=== PATIENT | female | born 2000 | race Caucasian/White ===

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

== ENCOUNTER 2021-06-30 10:47 | Outpatient (CLI) | payer OTHER ==
[2021-06-30 11:44] VITALS: BP 133/84; PULSE 119; RESP 16; TEMP 97.7
--- NOTE | 2021-07-14 08:09 | P.MSEPDOC ---
Presenting Problems - Arrival Data Date of Arrival on Unit: 06/30/21 Time of Arrival on Unit: 10:47 Mode of Transport: Ambulatory - Complaint OB-Reason for Admission/Chief Complaint: Elevated Blood Pressure Comment: Patient states she was told by her. physician that if her blood pressure was high she. should come to the hospital. Patient states she. checked her blood pressure this am at home and it was. 145/109. Asked patient why her Doctor was having her. check her blood pressures and she denies any. complications, just that "she told me if it was high. I should come to the hospital." Medical History - Information : 1 Para: 0 Term: 0 : 0 Abortions: Spontaneous or Elective: 0 Number of Living Children: 0 - Gestational Age Gestational Age by MAYELA (wks/days): 34 Weeks and 6 Days Review of Systems - Review of Systems Constitutional: No problems Breast: No problems ENT: No problems Cardiovascular: No problems Respiratory: No problems Gastrointestinal: No problems Genitourinary: No problems Musculoskeletal: No problems Neurological: No problems Skin: No problems Vital Signs - Temperature Temperature: 97.7 F Temperature Source: Temporal Artery Scan - Pulse Pulse Oximetery Pulse Rate: 119 Pulse Assessment Method: Pulse Oximetry - Respirations Respiratory Rate: 16 Oxygen Delivery Method: Room Air - Blood Pressure Sitting Blood Pressure: 133/84 Blood Pressure Mean: 100 Medical Screen Scoring - Assessment - Baby A Baseline FHR: 115 Heart Rate - NICHD Category: Category I (Normal) Physician Notification - Physician Notified Physician Notified Date: 06/30/21 Physician Notified Time: 11:06 Physician: Alda Gutierrez New Order Received: Yes - Notification Comment Comment: Physician states to obtain a reactive NST and discharge patient home with instructions Maternal Triage Index - Prompt/Priority 3 Prompt Priority 3: Yes Criteria Met for Priority 3: 34 6/7 Patient arrives to triage with increased blood pressure that she took at home of "145/109" Patient states that she was told by her doctor to come to the hospital if her blood pressure was high, but denies complications this . Disposition - Disposition OB Disposition: Discharge to home, Written follow up instructions reviewed Discharge Date: 06/30/21 Discharge Time: 11:32 I agree with the RN Medical Screening Exam: Yes Physician's MSE Comment: elevated BP not reproduced here in the hospital. Case reviewed; plan agreed upon as documented in EMR&OBIX.: Yes Diagnosis: GESTATIONAL HTN W/O SIGNIFICANT PROTEINURIA, THIRD TRIMESTER
== END 2021-06-30 11:32 | disposition home or self-care (01) ==
LOC: FBPOP 10:47
PROVIDERS: ATTEND Obstetrics & Gynecology
DX: O13.3 Gestational [pregnancy-induced] hypertension without significant proteinuria, third trimester (principal); Z3A.34 34 weeks gestation of pregnancy
CPT/HCPCS: 59025; G0463; 99213

== ENCOUNTER 2023-03-28 05:58 | Inpatient (IN) | payer MEDICAID, OTHER ==
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
[2023-03-28] MEDS ORDERED: ACETAMINOPHEN TAB 500 MG TAB PO STA (09:43)
[2023-03-28 10:26] LABS: Amphetamine Screen,Urine Not Detected (NotDetected); Barbiturate Screen,Urine Not Detected (NotDetected); Benzodiazepines Screen,Urine Not Detected (NotDetected); Cocaine Screen,Urine Not Detected (NotDetected); Methadone Screen, Urine Not Detected (NotDetected); Opiate Screen,Urine Not Detected (NotDetected); Oxycodone Screen, Urine Not Detected (NotDetected); Phencyclidine Screen,Urine Not Detected (NotDetected); Tricyclic Antidepressant,Urine Not Detected (NotDetected); Urn Cannabinoid Scrn Not Detected (NotDetected)
[2023-03-28 13:54] LABS: Appearance,Urine Cloudy (Clear); Bilirubin,Urine Negative (Negative); Blood,Urine Negative (Negative); Budding Yeast,Urine Rare /hpf; Color,Urine Yellow; Glucose,Urine (UA) Negative (Negative); Ketones,Urine Negative (Negative); Leukocyte Esterase,Urine Negative (Negative); Mucus,Urine Occasional /hpf; Nitrite,Urine Negative (Negative); PH, Urine 6.5 (5.0-8.0); Protein,Urine Negative (Negative); RBC,Urine <1 /hpf (0-5); Specific Gravity,Urine 1.029 (1.001-1.035); Squamous Epithelial Cell,Urine 9 /hpf (0-4); Urobilinogen,Urine <2.0 mg/dL (<2.0); WBC,Urine 3 /hpf (0-5)
[2023-03-28] MEDS ORDERED: HALOPERIDOL LACTATE 5 MG/ML 1 ML VIAL IM PRN (16:30)
[2023-03-28] MEDS ORDERED: MAGNESIUM HYDROXIDE 2,400 MG/30 ML CUP PO PRN (16:30)
[2023-03-28] MEDS ORDERED: LORazepam 2 MG/ML INJ IM PRN (16:30)
[2023-03-28] MEDS ORDERED: ACETAMINOPHEN TAB 325 MG TAB PO PRN (16:30)
[2023-03-28] MEDS ORDERED: haloperidoL 5 MG TAB PO PRN (16:30)
[2023-03-28] MEDS: IBUPROFEN 600 MG TAB PO PRN (20:34)
[2023-03-29 10:59] LABS: Basophils # (A) 0.1 k/uL (0-0.2); Basophils % (A) 1 %; Eosinophils # (A) 0.1 k/uL (0-0.7); Eosinophils % (A) 1 %; HCT 42.5 % (34.0-46.0); HGB 14.2 gm/dL (11.4-16.0); Lymphocytes # (A) 2.7 k/uL (1.0-4.8); Lymphocytes % (A) 27 %; MCH 28.9 pg (25.0-35.0); MCHC 33.4 g/dL (31.0-37.0); MCV 86.7 fL (80.0-100.0); Mean Platelet Volume 9.5; Monocytes # (A) 0.6 k/uL (0-1.0); Monocytes % (A) 6 %; Neutrophils # (A) 6.2 k/uL (1.3-7.7); Neutrophils % (A) 63 %; Platelet Count 332 k/uL (150-450); RDW 13.2 % (11.5-15.5); WBC 9.9 k/uL (3.8-10.6)
[2023-03-29 11:20] LABS: ALT 20 U/L (4-34); AST 19 U/L (14-36); African American GFR (CKD) >90 (>60 ml/min/1.73 sqM); Albumin 4.4 g/dL (3.5-5.0); Alkaline Phosphatase 86 U/L (38-126); Anion Gap 13 mmol/L; Blood Urea Nitrogen 13 mg/dL (7-17); Calcium 9.6 mg/dL (8.4-10.2); Carbon Dioxide 24 mmol/L (22-30); Chloride 105 mmol/L (98-107); Glucose 74 mg/dL (74-99); Non-African American GFR(CKD) >90 (>60 ml/min/1.73 sqM); Potassium 4.8 mmol/L (3.5-5.1); Sodium 142 mmol/L (137-145); Total Bilirubin 0.5 mg/dL (0.2-1.3); Total Protein 7.4 g/dL (6.3-8.2)
[2023-03-29] MEDS: SERTRALINE 50 MG TAB PO SCH (12:04)
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
[2023-03-29] MEDS: MAG HYDROX/AL HYDROX/SIMETH 30 ML CUP PO PRN (14:24)
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
[2023-03-29 18:29] LABS: Chol/HDL Ratio 3.18 Ratio; LDL Cholesterol,Calculated 67.7 mg/dL (0.0-131.0)
[2023-03-29] MEDS: NYSTATIN 100,000UNIT/GM CREAM 30 GM TUBE TOPICAL SCH (20:41)
[2023-03-29] MEDS: traZODone HCL 50 MG TAB PO SCH (20:41)
[2023-03-30] MEDS: SERTRALINE 50 MG TAB PO SCH (08:18)
[2023-03-30] MEDS: NYSTATIN 100,000UNIT/GM CREAM 30 GM TUBE TOPICAL SCH ×2 (08:18→20:48)
[2023-03-30] MEDS: IBUPROFEN 600 MG TAB PO PRN (13:39)
--- NOTE | 2023-03-30 14:45 | P.PN ---
Progress Note - Text Progress Note Date: 03/30/23 Interval History: Patient was seen in group and was directable and agreeable to speak with senior grant writer in the office. Patient states that she's doing ok today, and is having no thoughts of hurting herself today. Patient has been taking her meds, and only complaining of a slight stomach ache. Will continue to monitor. She claims that she misses her son. Claims that her mood and anxiety. Improving yesterday. States that she was able sleep fairly last night. Claims that her option is now improving. Claims that she is going to group and trying to participate as best she can. At this time patient denies any suicidal or homical ideations, intent or plan. Patient denies any auditory, visual hallucinations and denies any paranoia or delusions. Patient denies any side effects from the medications and has been compliant with meds. MENTAL STATUS EXAM: General Appearance: Patient appears to be over weight, disheveled, wearing glasses, Has tattoos, obese. Stated age, is alert, directable, and attempts to cooperate. Patient appears to have improving hygiene and grooming. Behavior: Patient is seated without any agitated behavior. Speech: Patient's speech is fluent and nonpressured. Soft Spoken, improving mildly Mood/Affect: Patient reports their mood is depressed and improving mildly, affect is congruent and constricted. Suicidality/Homicidality: Patient denies having any homicidal ideation intent or plan. Denies any suicidal ideations intent or plan Perceptions: Patient denies any visual hallucinations and denies any auditory hallucinations Though content/process: There is no evidence of any delusional thought content and thought process is linear and goal-directed. Improving Memory and concentration: AOX3, grossly intact for the purposes of this session. Judgment and insight: Limited, improving mildly IMPRESSIONS: major depressive disorder without psychotic features intellectual disability PTSD PLAN: -Patient is admitted under voluntary status to MHU for stabilization of psychiatric symptoms and safety. Patient has signed adult voluntary form and medication consent and is placed in patient's chart. -Medications : Zoloft 50mg qd for mood/anxiety, trazodone 25mg qhs for mood/anxiety/sleep -Ativan PRN for agitation/aggression -NRT - nonsmoker -SW on board for discharge planning. Encourage patient to participate in groups to work on coping skills.
[2023-03-30] MEDS: traZODone HCL 50 MG TAB PO SCH (20:48)
[2023-03-31] MEDS: SERTRALINE 50 MG TAB PO SCH (08:06)
[2023-03-31] MEDS: NYSTATIN 100,000UNIT/GM CREAM 30 GM TUBE TOPICAL SCH ×2 (08:06→20:55)
[2023-03-31] MEDS: MAG HYDROX/AL HYDROX/SIMETH 30 ML CUP PO PRN ×2 (08:40→22:05)
[2023-03-31] MEDS: LORazepam 1 MG TAB PO PRN ×2 (14:23→22:06)
[2023-03-31] MEDS: traZODone HCL 50 MG TAB PO SCH (20:55)
[2023-03-31] MEDS ORDERED: diphenhydrAMINE 50 MG CAP PO PRN (22:09)
--- NOTE | 2023-03-31 22:20 | P.PN ---
Progress Note - Text Progress Note Date: 03/31/23 The psychiatrist provided location [place], [place], and credentials, stated I am licensed as an Adult Psychiatrist in the [facility]. Zoom meeting locked after client's arrival. Client Info Confirmation - The client states their name, states they are at [facility] psychiatric unit. HIPAA & limitations - Reviewed and discussed with the client: suicidal/homicidal intent, abuse of children, and plan of action per the law of the patients state of residence. Patient Confidentiality - Informed the client the psychiatrist will not record sessions unless clinically or legally necessary and will disclose first and asked that the client do the same for confidentiality. The client denied recording. Interval History: Patient was seen today as coverage for Dr. Piedra. The patient was evaluated in presence of staff member. The patient reports still having interrupted sleep and feeling tired and not rested. She denies trouble falling sleep but couldn't stay asleep. patient reports Trazodone helps only for falling asleep. The patient has been going to groups and other unit activities. The patient reports is still feeling depressed but slightly improved compared to the time she came to the hospital. She reports she still having suicidal ideation with the last time was last night but she denies any intent or plan to hurt herself. She reports thinking about her family helped her to distract her mind from suicidal thoughts. Patient denies mood swings, irritability, agitation, or outbursts of anger. She reports improvement in her appetite. The patient denies hallucinations, paranoid ideation, delusions, or manic symptoms. She reports having rash related to contact dermatitis which is itching. We discussed two add Benadryl to help with the sleep and itching. Patient agreed to try higher dose of Zoloft to help better managing depression MENTAL STATUS EXAM: General Appearance: Patient appears to be over weight, disheveled, wearing glasses, Has tattoos, obese. Stated age, is alert Behavior: Patient is seated without any agitated behavior. Speech: Patient's speech is fluent and non pressured. Soft Spoken, improving mildly Mood/Affect: Patient reports their mood is depressed and improving mildly, affect is congruent and constricted. Suicidality/Homicidality: Patient denies having any homicidal ideation intent or plan. Reports SI last night but denies intent or plan. Perceptions: Patient denies any visual hallucinations and denies any auditory hallucinations Though content/process: There is no evidence of any delusional thought content and thought process is linear and goal-directed. Improving Memory and concentration: AOX3, grossly intact for the purposes of this session. Judgment and insight: Limited, improving mildly IMPRESSIONS: Major depressive disorder without psychotic features Intellectual disability by history PTSD PLAN: Continue inpatient psychiatric hospitalization.Patient still needs further monitoring and stabilization of depression Implement the following precautions as recommended by the admitting psychiatrist: suicide and elopement Consult the medical team immediately if any medical concerns arise. Educate the patient on the benefits of participating in groups and other unit activities and encourage active participation. Lab work ordered:none Medications: increase Zoloft 75 mg PO qd for mood/anxiety Trazodone 25mg qhs for mood/anxiety/sleep Start Benadryl 25 mg PO HS PRN insomnia/ itching Ativan PRN for agitation/aggression Discharge planning is currently in progress.
[2023-04-01] MEDS: NYSTATIN 100,000UNIT/GM CREAM 30 GM TUBE TOPICAL SCH ×2 (08:43→22:31)
[2023-04-01] MEDS: SERTRALINE 25 MG TAB PO SCH (16:38)
--- NOTE | 2023-04-01 18:55 | P.PN ---
Progress Note - Text Progress Note Date: 04/01/23 Interval History: Patient was seen bedside and was directable and agreeable to speak with automobile and property underwriter. Patient states that she is not sure why Zoloft was moved to bedtime because she's been having more trouble sleeping and says that she did not sleep well last night. However, she was observed to be resting during the daytime and was encouraged to be awake during the day. She also requests an increase in trazodone. The patient states that last night, she was having increased suicidal ideation with a plan to cut herself. However, she states that she was able to redirect herself. She reports fair appetite but lower energy during the daytime today. At this time patient denies any current suicidal or homicidal ideation, intent or plan. Patient denies any auditory, visual hallucinations and denies any paranoia or delusions. Patient denies any side effects from the medications and has been compliant with meds. MENTAL STATUS EXAM: General Appearance: Patient appears to be over weight, disheveled, wearing glasses, Has tattoos, obese. Stated age, is alert, directable, and attempts to cooperate. Patient appears to have improving hygiene and grooming. Behavior: Patient is seated without any agitated behavior. Speech: Patient's speech is fluent and nonpressured. Soft Spoken, improving mildly Mood/Affect: Patient reports their mood is depressed and improving mildly, affect is congruent and constricted. Suicidality/Homicidality: Patient denies having any homicidal ideation intent or plan. Denies any suicidal ideation intent or plan, but admits to recent suicidal ideation. Perceptions: Patient denies any visual hallucinations and denies any auditory hallucinations Though content/process: There is no evidence of any delusional thought content and thought process is linear and goal-directed. [place] Memory and concentration: AOX3, grossly intact for the purposes of this session. Judgment and insight: Limited, improving mildly IMPRESSIONS: major depressive disorder without psychotic features intellectual disability PTSD PLAN: -Patient is admitted under voluntary status to MHU for stabilization of psychiatric symptoms and safety. Patient has signed adult voluntary form and medication consent and is placed in patient's chart. -Medications : Zoloft 50mg qAM for mood/anxiety, increase trazodone to 50mg qhs for mood/anxiety/sleep. Discussed sleep hygiene -Ativan PRN for agitation/aggression -NRT - nonsmoker -SW on board for discharge planning. Encourage patient to participate in groups to work on coping skills.
[2023-04-01] MEDS: IBUPROFEN 600 MG TAB PO PRN (19:43)
[2023-04-01] MEDS ORDERED: SERTRALINE 25 MG TAB PO SCH (21:00)
[2023-04-01] MEDS: traZODone HCL 50 MG TAB PO SCH (22:33)
[2023-04-02] MEDS: NYSTATIN 100,000UNIT/GM CREAM 30 GM TUBE TOPICAL SCH ×2 (08:24→22:35)
[2023-04-02] MEDS: SERTRALINE 25 MG TAB PO SCH (08:24)
--- NOTE | 2023-04-02 17:40 | P.PN ---
Progress Note - Text Progress Note Date: 04/02/23 Interval History: Patient was seen bedside and was directable and agreeable to speak with development writer. Patient says that she had "bad thoughts yesterday" including thoughts of wanting to cut her wrist. However, she says that she thought about her 1-year-old Yahir which made her feel better. She currently reports her mood is "good ". She denies any other concerns. She said that with the increased dose of trazodone, she slept much better last night. She also has noticed that with Zoloft, she is not as interested in overeating. She states that she has a good appetite, she is able to control her eating and regulated better than she used to. At this time patient denies any current suicidal or homicidal ideation, intent or plan. Patient denies any auditory, visual hallucinations and denies any paranoia or delusions. Patient denies any side effects from the medications and has been compliant with meds. MENTAL STATUS EXAM: General Appearance: Patient appears to be over weight, disheveled, wearing glasses, Has tattoos, obese. Stated age, is alert, directable, and attempts to cooperate. Patient appears to have improving hygiene and grooming. Behavior: Patient is seated without any agitated behavior. Speech: Patient's speech is fluent and nonpressured. Soft Spoken, improving mildly Mood/Affect: Patient reports their mood is depressed and improving mildly, affect is congruent and constricted. Suicidality/Homicidality: Patient denies having any homicidal ideation intent or plan. Denies any suicidal ideation intent or plan, but admits to recent suicidal ideation with plan to cut herself Perceptions: Patient denies any visual hallucinations and denies any auditory hallucinations Though content/process: There is no evidence of any delusional thought content and thought process is linear and goal-directed. [place] Memory and concentration: AOX3, grossly intact for the purposes of this session. Judgment and insight: Limited, improving mildly IMPRESSIONS: Major depressive disorder without psychotic features Intellectual disability PTSD PLAN: -Patient is admitted under voluntary status to MHU for stabilization of psychiatric symptoms and safety. Patient has signed adult voluntary form and medication consent and is placed in patient's chart. -Medications : Zoloft 50mg qAM for mood/anxiety, continue trazodone 50mg qhs for mood/anxiety/sleep. -Sleep hygiene -Ativan PRN for agitation/aggression -NRT - nonsmoker -SW on board for discharge planning. Encourage patient to participate in groups to work on coping skills.
[2023-04-02] MEDS: traZODone HCL 50 MG TAB PO SCH (22:35)
[2023-04-03] MEDS: SERTRALINE 25 MG TAB PO SCH (08:39)
[2023-04-03] MEDS: NYSTATIN 100,000UNIT/GM CREAM 30 GM TUBE TOPICAL SCH ×2 (08:39→22:23)
[2023-04-03] MEDS: IBUPROFEN 600 MG TAB PO PRN (10:06)
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
[2023-04-03] MEDS: buPROPion 100 MG TAB PO SCH (22:44)
[2023-04-03] MEDS: traZODone HCL 50 MG TAB PO SCH (22:44)
[2023-04-04] MEDS: NYSTATIN 100,000UNIT/GM CREAM 30 GM TUBE TOPICAL SCH ×2 (08:54→22:30)
[2023-04-04] MEDS: SERTRALINE 100 MG TAB PO SCH (08:54)
[2023-04-04] MEDS: SERTRALINE 25 MG TAB PO SCH (08:54)
[2023-04-04] MEDS: buPROPion 100 MG TAB PO SCH ×2 (08:55→22:30)
--- NOTE | 2023-04-04 13:33 | P.PN ---
Subjective Progress Note Date: 04/04/23 Patient Name: Hafsa Pinzon Date of : [birth year] Patient Status: Inpatient Attending Provider: James Piedra Date: Initialization Date: 04/02/23 17:38 Progress Note - Text Progress Note Date: 04/03/23 Interval History: The patient was seen chart was reviewed in case discussed with the nursing staff the patient was evaluated through the Tele psych by zoom conference Patient reports that she wants to go home she says that her mother wants her to be back patient however did not give any details about her complaints of depression and complains of not feeling better as well as meeting all the medications changed patient was increasingly demanding yesterday and concrete and focused on presenting yourself in a worse picture? Remains a unreliable historian MENTAL STATUS EXAM: General Appearance: Patient appears to be over weight, disheveled, wearing glasses, Has tattoos, obese. Stated age, is alert, directable, and attempts to cooperate. Patient appears to have improving hygiene and grooming. Behavior: Patient is seated without any agitated behavior. Speech: Patient's speech is fluent and nonpressured. Soft Spoken, improving mildly Mood/Affect: Patient reports their mood is depressed , affect is congruent and constricted. Suicidality/Homicidality: admits suicidal ideation but no intent or plan, but admits to recent suicidal ideation with plan to cut herself Perceptions: Patient denies any visual hallucinations and denies any auditory hallucinations Though content/process: There is no evidence of any delusional thought content and thought process is linear and goal-directed. [place] Memory and concentration: AOX3, grossly intact for the purposes of this session. 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 Major depressive disorder without psychotic features Intellectual disability PTSD PLAN: patient originally was expecting to be discharged but now demands more changes with her medications as well as a completely opposite picture of what she had claimed the previous day patient appears to show some dependency traits as well as tendency to exaggerate some of her complaints dispel her false expectations regarding getting'happy medications'and realistic expectations discussed medications as a co-treatment in addition to improve her coping skills and positive thinking and working on her affirmations goals and cognitive distortions and learning appropriate life management coping skills -Patient is admitted under voluntary status to [facility] for stabilization of psychiatric symptoms and safety. Patient has signed adult voluntary form and medication consent and is placed in patient's chart. -Medications : continue trazodone 50mg qhs for mood/anxiety/sleep. Will increase the Zoloft to 125 mg daily and also had Wellbutrin hundred milligrams b.i.d. as requested by the patient for med changes as deemed appropriate discussed effects and side effects -Sleep hygiene -Ativan PRN for agitation/aggression -NRT - nonsmoker -SW on board for discharge planning. Encourage patient to participate in groups to work on coping skills. But it is setting limits and redirection and reality orientation Junior Wilson MD 04/04/2023 Objective - Vital Signs Vital signs: Vital Signs Temp 97.5 F L 04/04/23 06:26 Pulse 104 H 04/04/23 06:26 Resp 14 04/04/23 06:26 BP 123/74 04/04/23 06:26 Pulse Ox 97 04/03/23 06:43 FiO2 - Labs CBC & Chem 7: 03/29/23 10:22 03/29/23 10:22
[2023-04-04] MEDS: LORazepam 1 MG TAB PO PRN (15:25)
[2023-04-04] MEDS: IBUPROFEN 600 MG TAB PO PRN (15:47)
[2023-04-04] MEDS: traZODone HCL 50 MG TAB PO SCH (22:30)
[2023-04-05] MEDS: NYSTATIN 100,000UNIT/GM CREAM 30 GM TUBE TOPICAL SCH ×2 (08:31→22:41)
[2023-04-05] MEDS: SERTRALINE 100 MG TAB PO SCH (08:31)
[2023-04-05] MEDS: SERTRALINE 25 MG TAB PO SCH (08:31)
[2023-04-05] MEDS: buPROPion 100 MG TAB PO SCH ×2 (08:31→22:40)
--- NOTE | 2023-04-05 14:48 | P.PN ---
Subjective Progress Note Date: 04/05/23 Patient Name: Hafsa Pinzon Date of : 00 Patient Status: Inpatient Attending Provider: James Piedra Date: 04/04/23 Initialization Date: 04/02/23 17:38 Interval History: The patient was seen chart was reviewed in case discussed with the nursing staff Patient reports that she feels anxious throughout the day although she does not show any signs of anxiety objectively new line continues to demand more medications patient remains very medication oriented thinking remains very concrete and simple new line stays that she did have some sleep but it was impaired MENTAL STATUS EXAM: General Appearance: Patient appears to be over weight, disheveled, wearing glasses, Has tattoos, obese. Stated age, is alert, directable, and attempts to cooperate. Patient appears to have improving hygiene and grooming. Behavior: Patient is seated without any agitated behavior. Speech: Patient's speech is fluent and nonpressured. Soft Spoken, improving mildly Mood/Affect: Patient reports their mood is depressed , affect is congruent and constricted. Suicidality/Homicidality: admits suicidal ideation but no intent or plan, but admits to recent suicidal ideation with plan to cut herself Perceptions: Patient denies any visual hallucinations and denies any auditory hallucinations Though content/process: There is no evidence of any delusional thought content and thought process is linear and goal-directed. [place] Memory and concentration: AOX3, grossly intact for the purposes of this session. 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 Major depressive disorder without psychotic features Intellectual disability PTSD PLAN: patient originally was expecting to be discharged but now demands more changes with her medications as well as a completely opposite picture of what she had claimed the previous day patient appears to show some dependency traits as well as tendency to exaggerate some of her complaints dispel her false expectations regarding getting'happy medications'and realistic expectations discussed medications as a co-treatment in addition to improve her coping skills and positive thinking and working on her affirmations goals and cognitive d istortions and learning appropriate life management coping skills -Patient is admitted under voluntary status to [facility] for stabilization of psychiatric symptoms and safety. Patient has signed adult voluntary form and medication consent and is placed in patient's chart. -Medications : continue trazodone 50mg qhs for mood/anxiety/sleep. Have increased the Zoloft to 125 mg daily and also Added Wellbutrin hundred milligrams b.i.d. as requested by the patient for med changes as deemed appropriate discussed effects and side effects Due to her drug seeking behavior will discontinue the Lorazepam as patient has a high potential for abuse and will start gabapentin 200 programs TID to start with discussed effects and side effects [facility] care and support -Sleep hygiene -Ativan PRN for agitation/aggression -NRT - nonsmoker -SW on board for discharge planning. Encourage patient to participate in groups to work on coping skills. But it is setting limits and redirection and reality orientation Junior Wilson MD 04/05/2023 The following note is dictated with the [employer] dictation system and may contain some mistakes and grammatical errors every attempt has been made to correct the note but may still escape some scrutiny Objective - Vital Signs Vital signs: Vital Signs Temp 98.4 F 04/05/23 06:59 Pulse 105 H 04/05/23 06:59 Resp 14 04/05/23 06:59 BP 117/56 04/05/23 06:59 Pulse Ox 98 04/05/23 06:59 FiO2 - Labs CBC & Chem 7: 03/29/23 10:22 03/29/23 10:22
[2023-04-05] MEDS: GABAPENTIN 100 MG CAP PO SCH ×2 (16:16→22:40)
[2023-04-05] MEDS: IBUPROFEN 600 MG TAB PO PRN (20:34)
[2023-04-05] MEDS: traZODone HCL 50 MG TAB PO SCH (22:40)
[2023-04-06] MEDS: buPROPion 100 MG TAB PO SCH ×2 (08:46→21:50)
[2023-04-06] MEDS: SERTRALINE 100 MG TAB PO SCH (08:46)
[2023-04-06] MEDS: GABAPENTIN 100 MG CAP PO SCH ×3 (08:46→21:50)
[2023-04-06] MEDS: SERTRALINE 25 MG TAB PO SCH (08:46)
[2023-04-06] MEDS: NYSTATIN 100,000UNIT/GM CREAM 30 GM TUBE TOPICAL SCH ×2 (08:46→21:50)
[2023-04-06] MEDS: valACYclovir HCL 1,000 MG TABLET PO SCH ×2 (13:00→21:52)
--- NOTE | 2023-04-06 14:50 | P.PN ---
Subjective Progress Note Date: 04/06/23 Patient Name: Hafsa Pinzon Date of : 00 Patient Status: Inpatient Attending Provider: James Piedra Date: 04/06/23 Initialization Date: 04/02/23 17:38 Interval History: The patient was seen chart was reviewed in case discussed in the nursing staff patient now reports that she is feeling somewhat better and that she is looking forward to going home soon patient states that she still has some cold sores in the mouth and requested for some intervention she denies that she is having any suicidal or homicidal thoughts patient states that she has been sleeping somewhat better MENTAL STATUS EXAM: Reveals a young female who appears somewhat overweight patient is alert and oriented to time place and person hygiene appears to be below par patient makes good eye contact affect at this time remains flat thinking remains very concrete patient continues to rationalize and intellectualize problem-solving skills are impaired self-esteem and confidence are low patient appears to be a jones average intelligence there is no evidence of any overt psychosis IMPRESSIONS: adjustment disorder with mixed emotional features personality disorder with borderline traits Major depressive disorder without psychotic features Intellectual disability PTSD PLAN: Patient's complaints seem to fluctuate between severe anxiety and depression to complete resolution the next day and reemerges of the same symptoms that they later patient overall remains unreliable historian thinking remains very concrete and simple Patient has also been requesting medications that will make her happy dispel her false expectations regarding getting'happy medications'and realistic expectations discussed medications as a co-treatment in addition to improve her coping skills and positive thinking and working on her affirmations goals and cognitive distortions and learning appropriate life management coping skills -Patient is admitted under voluntary status to [facility] for stabilization of psychiatric symptoms and safety. Patient has signed adult voluntary form and medication consent and is placed in patient's chart. -Medications : continue trazodone 50mg qhs for mood/anxiety/sleep. Have increased the Zoloft to 125 mg daily and also Added Wellbutrin hundred milligrams b.i.d. as requested by the patient for med changes as deemed appropriate discussed effects and side effects Due to her drug seeking behavior will discontinue the Lorazepam as patient has a high potential for abuse and will start gabapentin 200 programs TID to start with discussed effects and side effects [facility] care and support -Sleep hygiene -Ativan PRN for agitation/aggression -NRT - nonsmoker -SW on board for discharge planning. Encourage patient to participate in groups to work on coping skills. Junior Wilson MD 04/06/2023 The following note is dictated with the [employer] dictation system and may contain some mistakes and grammatical errors every attempt has been made to correct the note but may still escape some scrutiny Objective - Vital Signs Vital signs: Vital Signs Temp 98.4 F 04/05/23 06:59 Pulse 107 H 04/06/23 08:47 Resp 20 04/06/23 08:47 BP 123/66 04/06/23 08:47 Pulse Ox 98 04/05/23 06:59 FiO2 - Labs CBC & Chem 7: 03/29/23 10:22 03/29/23 10:22
--- NOTE | 2023-04-06 14:52 | P.PN ---
Subjective Progress Note Date: 04/06/23 Patient Name: Hafsa Pinzon Date of : 00 Patient Status: Inpatient Attending Provider: James Piedra Date: 04/06/23 Initialization Date: 04/02/23 17:38 Interval History: The patient was seen chart was reviewed in case discussed in the nursing staff patient now reports that she is feeling somewhat better and that she is looking forward to going home soon patient states that she still has some cold sores in the mouth and requested for some intervention she denies that she is having any suicidal or homicidal thoughts patient states that she has been sleeping somewhat better MENTAL STATUS EXAM: Reveals a young female who appears somewhat overweight patient is alert and oriented to time place and person hygiene appears to be below par patient makes good eye contact affect at this time remains flat thinking remains very concrete patient continues to rationalize and intellectualize problem-solving skills are impaired self-esteem and confidence are low patient appears to be a jones average intelligence there is no evidence of any overt psychosis IMPRESSIONS: adjustment disorder with mixed emotional features personality disorder with borderline traits Major depressive disorder without psychotic features Intellectual disability PTSD PLAN: Patient's complaints seem to fluctuate between severe anxiety and depression to complete resolution the next day and reemerges of the same symptoms that they later patient overall remains unreliable historian thinking remains very concrete and simple Patient has also been requesting medications that will make her happy dispel her false expectations regarding getting'happy medications'and realistic expectations discussed medications as a co-treatment in addition to improve her coping skills and positive thinking and working on her affirmations goals and cognitive distortions and learning appropriate life management coping skills -Patient is admitted under voluntary status to [facility] for stabilization of psychiatric symptoms and safety. Patient has signed adult voluntary form and medication consent and is placed in patient's chart. -Medications : continue trazodone 50mg qhs for mood/anxiety/sleep. Have increased the Zoloft to 125 mg daily and also Added Wellbutrin hundred milligrams b.i.d. as requested by the patient for med changes as deemed appropriate discussed effects and side effects Due to her drug seeking behavior will discontinue the Lorazepam as patient has a high potential for abuse and will start gabapentin 200 programs TID to start with discussed effects and side effects [facility] care and support -Sleep hygiene -Ativan PRN for agitation/aggression -NRT - nonsmoker -SW on board for discharge planning. Encourage patient to participate in groups to work on coping skills. Junior Wilson MD 04/06/2023 The following note is dictated with the [employer] dictation system and may contain some mistakes and grammatical errors every attempt has been made to correct the note but may still escape some scrutiny Objective - Vital Signs Vital signs: Vital Signs Temp 98.4 F 04/05/23 06:59 Pulse 107 H 04/06/23 08:47 Resp 20 04/06/23 08:47 BP 123/66 04/06/23 08:47 Pulse Ox 98 04/05/23 06:59 FiO2 - Labs CBC & Chem 7: 03/29/23 10:22 03/29/23 10:22
[2023-04-06] MEDS: traZODone HCL 50 MG TAB PO SCH (21:50)
[2023-04-06] MEDS: IBUPROFEN 600 MG TAB PO PRN (21:51)
[2023-04-07 05:59] VITALS: BP 138/66; PULSE 91; RESP 18; TEMP 98
[2023-04-07] MEDS: NYSTATIN 100,000UNIT/GM CREAM 30 GM TUBE TOPICAL SCH (08:24)
[2023-04-07] MEDS: SERTRALINE 25 MG TAB PO SCH (08:24)
[2023-04-07] MEDS: buPROPion 100 MG TAB PO SCH (08:24)
[2023-04-07] MEDS: SERTRALINE 100 MG TAB PO SCH (08:25)
[2023-04-07] MEDS: GABAPENTIN 100 MG CAP PO SCH (08:25)
[2023-04-07 11:20] VITALS: BMI 54.5
--- NOTE | 2023-04-07 11:25 | P.DS ---
Providers Date of admission: 03/28/23 16:23 Expected date of discharge: 04/07/23 Attending physician: James Peidra MD Consults: 03/28/23 16:30 Consult Physician Routine Consulting Provider: Tessa Villalobos Consult Reason/Comments: H&P and rash on buttocks and between 4th and 5th digit on right foot Do you want consulting provider notified?: Yes Primary care physician: Nolvia Peters - Discharge Diagnosis(es) (1) Adjustment disorder with mixed emotional features Current Visit: Yes Status: Acute Priority: High (2) Personality disorder Current Visit: Yes Status: Acute Priority: High (3) Major depressive disorder without psychotic features Current Visit: Yes Status: Acute Priority: High (4) Intellectual disability Current Visit: Yes Status: Acute Priority: Medium (5) PTSD (post-traumatic stress disorder) Current Visit: Yes Status: Acute Priority: Medium Hospital Course: Admission HPI: Admission note was completed by mortgage loan underwriter "Patient is a 22-year-old female, lives in a house with mother, brother, stepparent, tonia, 1-year-old son. Unemployed. Patient presented to the hospital on 03/28 to the ED, as per EPS note "family had called to pt early this morning after pt's son woke up and wanted pt. However, pt then began to yell and scream and escalated to the point where police had to be called to the home. pt states, "I don't know why I blew up. I need help. I have been depressed for a year now." pt reports that she has also been feeling isolated and alone since she gave to her son who will be 2 in July. pt states that her family goes out working and she is home alone for a significant period of time with her son. pt reports that she loves her son, but has been missing having interactions with others who are older. pt reports that she has been having intermittent SI that has been occurring more frequently recently. pt states that she last had SI on Monday or Monday. pt denies current SI initially. pt denies HI and hallucinations. No delusional thoughts verbalized. pt cooperative with assessment. pt's mother stepped out of room and pt requested to speak with mortgage loan underwriter again. pt reports significant SI with plan to cut and reports that it has been happening daily. pt reports that she is currently experiencing SI as well. pt states that the reason she had not acted on her thoughts was because she was home alone with her son and did not want him to be home without someone to care for him. pt states that she had not initially spoken about these thoughts because she did not want her mom to be angry with her or cry and did not initially know how to request that her mother leave when mortgage loan underwriter had originally asked. pt did request mortgage loan underwriter to remain in room while she told her mother that she had been experiencing SI more frequently than she had told her and that she was currently experiencing SI. pt states that she did not want to disappoint her mother." Upon todays interview, she states what brought her in is all the pressure of raising and caring for her son, and her fiance, with having to care for him with diabetes. States she's been depressed for about a year, and is just feeling very overwhelmed. States she got into a fight with her mother, about caring for her baby, and she got triggered from being woke up rudely by her brother. States she did not hurt herself, but she had thoughts of hurting herself. States she wanted to cut her wrists. Mother called 911, and they brought her to the hospital. Mood today is a little better, but not much, and she is feeling anxious. Patient states her sleep is as good as it gets with a 1 year old. Her appetite is fair. Patient does not endorse any paranoia. Patient denies any suicidal or homicidal ideations intent or plan. At this time patient denies any auditory or visual hallucinations. Patient denies any flight of ideas racing thoughts and increased in goal directed behavior. Patient denies using recreational drugs, alcohol, cigarettes. " Hospital course: Upon admission to the unit patient was directable and agreeable to commence treatment and signed adult voluntary form. Patient got along well with other patients on the unit and followed unit protocol. Patient was compliant with the medications and denied any side effects throughout hospital course. Patient was started on Zoloft and increase her dose of 150 mg daily for mood/anxiety, Wellbutrin 100 mg twice a day for mood adjunct, trazodone 50 mg qhs for insomnia/mood. Patient spoke of her stressors and engaged in therapy both group and individual. Patient was also seen by medical team for history and physical exam. Throughout the course of the hospitalization patient gradually improved with regards to mood, anxiety, suicidal thoughts, sleep and returned back to their baseline level of functioning. On the day of discharge patient denied any suicidal or homicidal ideations intent or plan denied any auditory or visual hallucinations. Patient endorsed wanting to live for her health and family/kids. The patient denied any access to guns or weapons. Patient denied any paranoia and did not endorse any delusions. Patient does not have a significant history of substance abuse and was counseled on abstaining from all substances including alcohol and marijuana. Patient was also counseled on the medications and need for regular compliance and was encouraged to follow-up with their outpatient appointment for mental health and also for primary care. Prior to discharge a family meeting will be arranged by high school social studies tutor to answer any questions and ensure safety upon discharge. Mental status exam: General Appearance: Patient appears to be mildly overweight, wearing gl asses,stated age is alert, pleasant, and cooperative. Patient is in no acute distress and has improved hygiene and grooming Behavior: Patient is calmly seated without any agitated behavior. Speech: Patient's speech is fluent and nonpressured. Mood/Affect: Patient reports their mood is "better", affect is congruent and euthymic. Suicidality/Homicidality: Patient denies having any suicidal or homicidal ideation intent or plan. Perceptions: Patient denies any auditory or visual hallucinations. Though content/process: There is no evidence of any delusional thought content and thought process is linear and goal-directed. more future oriented Memory and concentration: AOX3, grossly intact for the purposes of this session. Can spell "WORLD" backwards correctly. Judgment and insight: chronically poor/limited, however has improved with guarded prognosis Impression: adjustment disorder with mixed emotional features personality disorder major depressive disorder without psychotic features intellectual disability PTSD Plan: -Continue with discharge today as patient has improved and stabilized psychiatrically and is not currently an imminent threat to herself and/or others. Patient will remain at chronically elevated risk for harm to self and/or others due to her impulsivity. -Continue medications: Zoloft 150 mg daily for mood/anxiety, trazodone 50 mg daily at bedtime for mood/sleep, Wellbutrin 100 mg twice a day for mood adjunct -Patient was counseled on the need for medication compliance and appropriate follow-up at mental health and also primary care for medical issues. Patient verbalized understanding and agreed. -Social work to arrange for and conduct family meeting to ensure safety upon discharge and answer any questions/concerns. Social work also to arrange for pat ients follow up appointments with [facility] for psychiatric care along with follow up with primary care provider. -Patient counseled on abstaining from recreational drugs and marijuana and alcohol. Was informed/educated on the adverse effects on their physical and mental health. Patient verbally agreed and understood. -Patient was instructed to return to the hospital or seek immediate medical care if their psychiatric or medical symptoms do worsen or reoccur. Allergies Allergy/AdvReac Type Severity Reaction Status Date / Time No Known Allergies Allergy Verified 03/28/23 15:17 Laboratory Results WBC 9.9 k/uL (3.8-10.6) 03/29/23 10: RBC 4.90 m/uL (3.80-5.40) 03/29/23 10:22 Hgb 14.2 gm/dL (11.4-16.0) 03/29/23 10:22 Hct 42.5 % (34.0-46.0) 03/29/23 10:22 MCV 86.7 fL (80.0-100.0) 03/29/23 10: MCH 28.9 pg (25.0-35.0) 03/29/23 10: MCHC 33.4 g/dL (31.0-37.0) 03/29/23 10:22 RDW 13.2 % (11.5-15.5) 03/29/23 10:22 Plt Count 332 k/uL (150-450) 03/29/23 10:22 MPV 9.5 03/29/23 10:22 Neutrophils % 63 % 03/29/23 10:22 Lymphocytes % 27 % 03/29/23 10:22 Monocytes % 6 % 03/29/23 10:22 Eosinophils % 1 % 03/29/23 10:22 Basophils % 1 % 03/29/23 10: Neutrophils # 6.2 k/uL (1.3-7.7) 03/29/23 10:22 Lymphocytes # 2.7 k/uL (1.0-4.8) 03/29/23 10: Monocytes # 0.6 k/uL (0-1.0) 03/29/23 10:22 Eosinophils # 0.1 k/uL (0-0.7) 03/29/23 10:22 Basophils # 0.1 k/uL (0-0.2) 03/29/23 10:22 Sodium 142 mmol/L (137-145) 03/29/23 10:22 Potassium 4.8 mmol/L (3.5-5.1) 03/29/23 10:22 Chloride 105 mmol/L (98-107) 03/29/23 10:22 Carbon Dioxide 24 mmol/L (22-30) 03/29/23 10:22 Anion Gap 13 mmol/L 03/29/23 10:22 BUN 13 mg/dL (7-17) 03/29/23 10:22 Creatinine 0.60 mg/dL (0.52-1.04) 03/29/23 10:22 Est GFR (CKD-EPI)AfAm >90 (>60 ml/min/1.73 sqM) 03/29/23 10:22 Est GFR (CKD-EPI)NonAf >90 (>60 ml/min/1.73 sqM) 03/29/23 10:22 Glucose 74 mg/dL (74-99) 03/29/23 10:[address] Glu mg/dL 114 mg/dL 03/29/23 10:22 Hemoglobin A1c 5.6 % (<=6.0) 03/29/23 10:22 Calcium 9.6 mg/dL (8.4-10.2) 03/29/23 10:22 Total Bilirubin 0.5 mg/dL (0.2-1.3) 03/29/23 10:22 AST 19 U/L (14-36) 03/29/23 10:22 ALT 20 U/L (4-34) 03/29/23 10:22 Alkaline Phosphatase 86 U/L (38-126) 03/29/23 10:22 Total Protein 7.4 g/dL (6.3-8.2) 03/29/23 10:22 Albumin 4.4 g/dL (3.5-5.0) 03/29/23 10:22 Triglycerides 121.00 mg/dL (0.00-149.00) 03/29/23 10:22 Cholesterol 134.00 mg/dL (0.00-200.00) 03/29/23 10:22 LDL Cholesterol, Calc 67.7 mg/dL (0.0-131.0) 03/29/23 10:22 VLDL Cholesterol, Calc 24.20 mg/dL (5.00-40.00) 03/29/23 10: HDL Cholesterol 42.10 mg/dL (40.00-60.00) 03/29/23 10: Cholesterol/HDL Ratio 3.18 Ratio 03/29/23: TSH 0.883 mIU/L (0.465-4.680) 03/29/23 10:22 Urine Color Yellow 03/28/23 09:53 Urine Appearance Cloudy (Clear) H 03/28/23 09:53 Urine pH 6.5 (5.0-8.0) 03/28/23 09:53 Ur Specific [place] 1.029 (1.001-1.035) 03/28/23 09:53 Urine Protein Negative (Negative) 03/28/23 09:53 Urine Glucose (UA) Negative (Negative) 03/28/23 09:53 Urine Ketones Negative (Negative) 03/28/23 09:53 Urine Blood Negative (Negative) 03/28/23 09:53 Urine Nitrite Negative (Negative) 03/28/23 09:53 Urine Bilirubin Negative (Negative) 03/28/23 09:53 Urine Urobilinogen <2.0 mg/dL (<2.0) 03/28/23 09:53 Ur Leukocyte Esterase Negative (Negative) 03/28/23 09:53 Urine RBC <1 /hpf (0-5) 03/28/23 09:53 Urine WBC 3 /hpf (0-5) 03/28/23 09:53 Ur Squamous Epith Cells 9 /hpf (0-4) H 03/28/23 09:53 Urine Mucus Occasional /hpf (None) H 03/28/23 09:53 Urine Yeast (Budding) Rare /hpf (None) H 03/28/23 09:53 Urine HCG, Qual Not Detected (Not Detectd) 03/28/23 09:53 Urine Opiates Screen Not Detected (NotDetected) 03/28/23 09:53 Ur Oxycodone Screen Not Detected (NotDetected) 03/28/23 09:53 Urine Methadone Screen Not Detected (NotDetected) 03/28/23 09:53 Ur Barbiturates Screen Not Detected (NotDetected) 03/28/23 09:53 U Tricyclic Antidepress Not Detected (NotDetected) 03/28/23 09:53 Ur Phencyclidine Scrn Not Detected (NotDetected) 03/28/23 09:53 Ur Amphetamines Screen Not Detected (NotDetected) 03/28/23 09:53 U Methamphetamines Scrn Not Detected (NotDetected) 03/28/23 09:53 U Benzodiazepines Scrn Not Detected (NotDetected) 03/28/23 09:53 Urine Cocaine Screen Not Detected (NotDetected) 03/28/23 09:53 U Marijuana (THC) Screen Not Detected (NotDetected) 03/28/23 09:53 SARS-CoV-2 (PCR) Not Detected (Not Detectd) 03/28/23 09:53 Vital Signs Temp 98 F 04/07/23 05:35 Pulse 91 04/07/23 05:35 Resp 18 04/07/23 05:35 BP 138/66 04/07/23 05:35 Pulse Ox 99 04/07/23 05:35 FiO2 Intake & Output 04/06/23 04/07/23 04/07/23 18:59 06:59 18:59 Weight 126.6 kg Patient Condition at Discharge: Stable Plan - Discharge Summary Discharge Rx Participant: No New Discharge Prescriptions: New traZODone HCL [Desyrel] 50 mg PO HS 14 Days #14 tab Nystatin 100,000Unit/gm Cream [Mycostatin Cream] 1 applic TOPICAL BID 30 Days #1 each Acetaminophen Tab [Tylenol] 650 mg PO Q4HR PRN tab PRN Reason: Mild Pain (Scale 1 To 3) buPROPion [Wellbutrin] 100 mg PO BID 14 Days #28 tab Sertraline [Zoloft] 100 mg PO DAILY 14 Days #14 tab Ibuprofen [Motrin] 600 mg PO Q6HR PRN tab PRN Reason: Moderate Pain (Scale 4 To 6) valACYclovir HCL [Valtrex] 1,000 mg PO BID 5 Days #10 tablet Sertraline HCl [Zoloft] 50 mg PO DAILY 14 Days #14 tablet No Action No Known Home Medications Discharge Medication List No Known Home Medications 03/28/23 [History] Acetaminophen Tab [Tylenol] 650 mg PO Q4HR PRN tab 04/07/23 [Rx] Ibuprofen [Motrin] 600 mg PO Q6HR PRN tab 04/07/23 [Rx] Nystatin 100,000Unit/gm Cream [Mycostatin Cream] 1 applic TOPICAL BID 30 Days #1 each 04/07/23 [Rx] Sertraline HCl [Zoloft] 50 mg PO DAILY 14 Days #14 tablet 04/07/23 [Rx] Sertraline [Zoloft] 100 mg PO DAILY 14 Days #14 tab 04/07/23 [Rx] buPROPion [Wellbutrin] 100 mg PO BID 14 Days #28 tab 04/07/23 [Rx] traZODone HCL [Desyrel] 50 mg PO HS 14 Days #14 tab 04/07/23 [Rx] valACYclovir HCL [Valtrex] 1,000 mg PO BID 5 Days #10 tablet 04/07/23 [Rx] Follow up Appointment(s)/Referral(s): [facility] [Outside] - 04/11/23 2:00 pm (You will go to [facility] after you initial intake. with Nela Gavin) Nolvia Peters MD [Primary Care Provider] - 1-2 days Activity/Diet/Wound Care/Special Instructions: Avoid the use of street drugs and alcohol. Take all medications as prescribed. When you are in need of refills on your medications, please contact your medical provider and/or outpatient psychiatrist/provider to have this done. Please go to your scheduled outpatient appointment for aftercare treatment. If symptoms return or become worse, call the crisis line at and/or go to the nearest emergency room for evaluation. National Suicide Hotline 778. Discharge Disposition: HOME SELF-CARE
== END 2023-04-07 12:57 | disposition home or self-care (01) | DRG 755 ==
LOC: EC 05:58 → 3MHU 16:23
PROVIDERS: ADMIT Psychiatry & Neurology Psychiatry; ATTEND Psychiatry & Neurology Psychiatry
DX: F43.23 Adjustment disorder with mixed anxiety and depressed mood (principal); Z68.43 Body mass index [BMI] 50.0-59.9, adult; R45.851 Suicidal ideations; F31.9 Bipolar disorder, unspecified; R45.88 Nonsuicidal self-harm; F60.3 Borderline personality disorder; Z11.52 Encounter for screening for COVID-19; E66.9 Obesity, unspecified; F90.9 Attention-deficit hyperactivity disorder, unspecified type; F79 Unspecified intellectual disabilities; B00.1 Herpesviral vesicular dermatitis; I10 Essential (primary) hypertension; F43.10 Post-traumatic stress disorder, unspecified; F84.0 Autistic disorder; G47.00 Insomnia, unspecified; L25.9 Unspecified contact dermatitis, unspecified cause; Z56.0 Unemployment, unspecified; Z59.6 Low income; Z71.3 Dietary counseling and surveillance; Z76.5 Malingerer [conscious simulation]; Z81.8 Family history of other mental and behavioral disorders; Z71.51 Drug abuse counseling and surveillance of drug abuser; Z71.41 Alcohol abuse counseling and surveillance of alcoholic
CPT/HCPCS: 80053; 80061; 80306; 81001; 81025; 82075; 83036; 84443; 85025; 87635; 99285

== ENCOUNTER 2023-11-09 00:40 | Inpatient (IN) | payer MEDICAID, OTHER ==
[2023-11-09] MEDS ORDERED: ACETAMINOPHEN TAB 325 MG TAB ONE (18:28)
[2023-11-09] MEDS ORDERED: LORazepam 1 MG TAB ONE (18:32)
[2023-11-10] MEDS ORDERED: SERTRALINE 50 MG TAB ONE (08:23)
[2023-11-10] MEDS ORDERED: ARIPiprazole 5 MG TAB ONE (08:24)
[2023-11-10] MEDS ORDERED: traZODone HCL 50 MG TAB ONE (20:27)
[2023-11-11] MEDS ORDERED: ARIPiprazole 5 MG TAB ONE (08:01)
[2023-11-11] MEDS ORDERED: SERTRALINE 50 MG TAB ONE (08:01)
[2023-11-11] MEDS ORDERED: ACETAMINOPHEN TAB 325 MG TAB ONE ×2 (08:59→17:36)
[2023-11-11] MEDS ORDERED: LORazepam 1 MG TAB ONE (20:32)
[2023-11-12] MEDS ORDERED: MAG HYDROX/AL HYDROX/SIMETH 30 ML CUP PO PRN
[2023-11-12] MEDS ORDERED: BENZOCAINE 20 % GEL 11.9 GM TUBE MM PRN
[2023-11-12] MEDS ORDERED: LORazepam 2 MG/ML INJ IM PRN
[2023-11-12] MEDS ORDERED: SERTRALINE 50 MG TAB ONE (08:43)
[2023-11-12] MEDS ORDERED: ARIPiprazole 5 MG TAB ONE (08:43)
[2023-11-12] MEDS: SERTRALINE 50 MG TAB PO SCH (09:11)
[2023-11-12] MEDS: ARIPiprazole 5 MG TAB PO SCH (09:11)
--- NOTE | 2023-11-12 11:02 | P.PN ---
Progress Note - Text Progress Note Date: 11/12/23 The patient was seen and chart was reviewed and case discussed with nursing staff Patient reports that she seemed to get somewhat anxious in the evening and that whatever they gave her last night was helpful with her anxiety most likely referring to the lorazepam Emotionally she states that she is doing better She says that she is not having any suicidal or homicidal ideations or plans She states that she plans to get along better with her mother and that she intends to use her coping skills to communicate better Patient denies any thoughts of wanting to hurt himself or others Mental Status Exam: General Appearance: Patient appears to be midlly over weight, stated age is alert, directable, and attempts to be cooperative. Behavior: Patient is calmly seated without any agitated behavior. Attempts to cooperate. Speech: Patient's speech is fluent and nonpressured. Mood/Affect: Mood is improving mildly, affect is congruent and constricted. Suicidality/Homicidality: Patient denies having any suicidal or homicidal ideation intent or plan. Perceptions: Patient denies any visual hallucinations and denies any auditory hallucinations Though content/process: There is no evidence of any delusional thought content and thought process is linear and goal-directed. [address]. Memory and concentration: AOX3, grossly intact for the purposes of this session Judgment and insight: Improving mildly Diagnostic impression: Schizoaffective disorder unspecified Adjustment disorder with disturbance of affect and contact Personality disorder with borderline traits Plan: -Patient continues to meet criteria for inpatient psychiatric admission for symptom stabilization and safety. Patient has signed adult voluntary form and medication consent and was placed in patient's chart. -Medications: -When necessary Ativan and Haldol for agitation/aggression. -NRT - nicotine patch -SW on board for discharge planning. Encouraged the patient to participate in milieu. Active Medications Generic Name Dose Route Start Last Admin Trade Name Freq PRN Reason Stop Dose Admin Acetaminophen 650 mg 11/12/23 00:00 Acetaminophen Tab 325 Mg Tab PO Q4H PRN Fever and/ or Pain Al Hydroxide/Mg Hydroxide 30 ml 11/12/23 00:00 Mag Hydrox/Al Hydrox/Simeth 30 Ml Cup PO Q4HR PRN GI Upset Aripiprazole 5 mg 11/12/23 09:00 11/12/23 09:11 Aripiprazole 5 Mg Tab PO 5 mg DAILY YAMILKA Administration Benzocaine 1 applic 11/12/23 00:00 Benzocaine 20 % Gel 11.9 Gm Tube MM Q6H PRN NORY PAIN Lorazepam 1 mg 11/12/23 00:00 Lorazepam 1 Mg Tab PO Q6H PRN AGITATION/ ANXIETY Lorazepam 1 mg 11/12/23 00:00 Lorazepam 2 Mg/Ml Inj IM Q6HR PRN AGITATION/ ANXIETY Magnesium Hydroxide 2,400 mg 11/12/23 09:00 Magnesium Hydroxide 2,400 Mg/30 Ml Cup PO DAILY PRN Constipation Sertraline HCl 50 mg 11/12/23 09:00 11/12/23 09:11 Sertraline 50 Mg Tab PO 50 mg DAILY YAMILKA Administration Trazodone HCl 50 mg 11/12/23 00:00 Trazodone Hcl 50 Mg Tab PO HS PRN Insomnia
[2023-11-12] MEDS ORDERED: ACETAMINOPHEN TAB 325 MG TAB ONE (13:25)
[2023-11-12] MEDS ORDERED: LORazepam 1 MG TAB ONE (13:25)
[2023-11-12] MEDS: LORazepam 1 MG TAB PO PRN (13:25)
[2023-11-12] MEDS: ACETAMINOPHEN TAB 325 MG TAB PO PRN (13:25)
[2023-11-12] MEDS ORDERED: IBUPROFEN 400 MG TAB ONE ×2 (13:57→21:03)
[2023-11-12] MEDS: IBUPROFEN 400 MG TAB PO PRN (13:59)
[2023-11-12] MEDS ORDERED: traZODone HCL 50 MG TAB ONE (21:03)
[2023-11-12] MEDS: traZODone HCL 50 MG TAB PO PRN (21:04)
[2023-11-13 07:11] VITALS: RESP 16
[2023-11-13] MEDS ORDERED: SERTRALINE 50 MG TAB ONE (08:12)
[2023-11-13] MEDS ORDERED: IBUPROFEN 400 MG TAB ONE (08:12)
[2023-11-13] MEDS ORDERED: ARIPiprazole 5 MG TAB ONE (08:13)
--- NOTE | 2023-11-13 11:23 | P.PN ---
Progress Note - Text Progress Note Date: 11/13/23 Interval History: Patient was seen [wandering the hallways] and was directable and agreeable to speak with commercial insurance underwriter in the office. Patient states she was having thoughts of suicide yesterday after getting off the phone with her mother. She is asking for an increase in her medication, because it is making her tired all day. Power Lineman explained to the patient that it is not how the medications work, and we will switch them to QHS, patient agreeable. She is denying any thoughts of suicide today, She states her anxiety is a little elevated, but endorses no depression. She is endorsing good sleep, and a good appetite. At this time patient denies any suicidal or homicidal ideations, intent or plan. Patient denies any auditory, visual hallucinations and denies any paranoia or delusions. Patient denies any side effects from the medications and has been compliant with meds. Mental Status Exam: General Appearance: [Patient appears to be stated age is alert, directable, and cooperative.Obese, wearing casual clothes. Disheveled] Behavior: [Patient is calmly seated without any agitated behavior.] Speech: Patient's speech is fluent and nonpressured. Mood/Affect: Mood is improving mildly, affect is congruent and constricted. Suicidality/Homicidality: Patient denies having any suicidal or homicidal ideation intent or plan. Perceptions: Patient denies any visual hallucinations [and denies any auditory hallucinations] Though content/process: [There is no evidence of any delusional thought content and thought process is linear and goal-directed.] Memory and concentration: AOX3, grossly intact for the purposes of this session Judgment and insight: Improving mildly Assessment major depressive disorder borderline personality disorder nicotine dependance Plan: -Patient continues to meet criteria for inpatient psychiatric admission for symptom stabilization and safety. -Medications: trazodone 50mg po qhs prn, abilify 5mg po qhs, zoloft 100mg qhs (starting tomorrow.) -When necessary Ativan and Haldol for agitation/aggression. -NRT - [nicotine patch] -SW on board for discharge planning. Encouraged the patient to participate in milieu. Likely discharge back home tomorrow if patient continues to improve.
[2023-11-13] MEDS: MAGNESIUM HYDROXIDE 2,400 MG/30 ML CUP PO PRN (14:12)
[2023-11-13] MEDS: SERTRALINE 50 MG TAB PO ONE (20:40)
[2023-11-13] MEDS: ARIPiprazole 5 MG TAB PO SCH (20:40)
[2023-11-14 06:54] VITALS: BP 116/59; PULSE 83; TEMP 98.3
--- NOTE | 2023-11-14 10:08 | P.DS ---
Providers Date of admission: 11/09/23 12:40 Expected date of discharge: 11/14/23 Attending physician: James Piedra MD Consults: 11/11/23 16:01 Consult Physician Routine Consulting Provider: Tessa Villalobos Consult Reason/Comments: medical management Do you want consulting provider notified?: Already Contacted Primary care physician: Stated None - Discharge Diagnosis(es) (1) Major depressive disorder without psychotic features Current Visit: No Status: Acute Priority: High (2) Borderline personality disorder Current Visit: Yes Status: Acute Priority: High (3) Nicotine dependence Current Visit: Yes Status: Acute Priority: Low Hospital Course: Admission HPI: Admission note was completed by data analyst report writer "argument with boyfriend, she thought he was leaving her. They found him on the side of the road. depression increasing. mom keeps on threatening to take her son away. relationshit issues with other family members +SI, no plan -HI, -AH/VH. Sleep up and down, not taking trazodone, appetite increases, no drug use, no cigarette or ETOH use." Hospital course: Upon admission to the unit patient was directable and agreeable to commence treatment and signed adult voluntary form. Patient got along well with other patients on the unit and followed unit protocol. Patient was compliant with the medications and denied any side effects throughout hospital course. Patient was started on trazodone 50 mg nightly as needed for sleep, Abilify 5 mg nightly for mood stabilization, Zoloft 100 mg nightly for mood/anxiety.. Patient spoke of her stressors and engaged in therapy both group and individual. Patient was also seen by medical team for history and physical exam. Throughout the course of the hospitalization patient gradually improved with regards to mood, anxiety, suicidal thoughts, sleep and returned back to their baseline level of functioning. On the day of discharge patient denied any suicidal or homicidal ideations intent or plan denied any auditory or visual hallucinations. Patient endorsed wanting to live for her health and her child. The patient denied any access to guns or weapons. Patient denied any paranoia and did not endorse any delusions. Patient does not have a significant history of substance abuse and was counseled on abstaining from all substances including alcohol and marijuana.Patient was also counseled on the medications and need for regular compliance and was encouraged to follow-up with their outpatient appointment for mental health and also for primary care. Prior to discharge a family meeting will be arranged by social services analyst to answer any questions and ensure safety upon discharge. Mental status exam: General Appearance: Patient appears to be overweight, wearing glasses, stated age is alert, pleasant, and cooperative. Patient is in no acute distress and has improved hygiene and grooming Behavior: Patient is calmly seated without any agitated behavior. Speech: Patient's speech is fluent and nonpressured. Mood/Affect: Patient reports their mood is "better", affect is congruent and euthymic. Suicidality/Homicidality: Patient denies having any suicidal or homicidal ideation intent or plan. Perceptions: Patient denies any auditory or visual hallucinations. Though content/process: There is no evidence of any delusional thought content and thought process is linear and goal-directed. More future oriented Memory and concentration: AOX3, grossly intact for the purposes of this session. Can spell "WORLD" backwards correctly. Judgment and insight: Chronically poor, however has improved with guarded prognosis Impression: major depressive disorder borderline personality disorder nicotine dependance Plan: -Continue with discharge today as patient has improved and stabilized psychiatrically and is not currently an imminent threat to herself and/or others. Patient will remain at chronically elevated risk for harm to self and/or others due to her impulsivity and chronic suicidal thoughts -Continue medications: Trazodone 50 mg nightly as needed for insomnia, Abilify increased to dose of 7.5 mg nightly for mood stabilization, Zoloft 100 mg nightly for mood/anxiety. -Patient was counseled on the need for medication compliance and appropriate follow-up at mental health and also primary care for medical issues. Patient verbalized understanding and agreed. -Social work to arrange for and conduct family meeting to ensure safety upon discharge and answer any questions/concerns. Social work also to arrange for patients follow up appointments with [facility] for psychiatric care along with follow up with primary care provider. -Patient counseled on abstaining from recreational drugs and marijuana and a lcohol. Was informed/educated on the adverse effects on their physical and mental health. Patient verbally agreed and understood. -Patient was instructed to return to the hospital or seek immediate medical care if their psychiatric or medical symptoms do worsen or reoccur. Allergies Allergy/AdvReac Type Severity Reaction Status Date / Time No Known Allergies Allergy Verified 03/28/23 15:17 Laboratory Results Urine HCG, Qual Not Detected (Not Detectd) 11/12/23 13:30 Vital Signs Temp 98.3 F 11/14/23 06:31 Pulse 83 11/14/23 06:31 Resp 16 11/14/23 06:31 BP 116/59 11/14/23 06:31 Pulse Ox 97 11/14/23 06:31 FiO2 Patient Condition at Discharge: Stable Plan - Discharge Summary New Discharge Prescriptions: New ARIPiprazole [Abilify] 7.5 mg PO HS 30 Days #15 tablet traZODone HCL [Desyrel] 50 mg PO HS PRN 30 Days #30 tab PRN Reason: Insomnia Sertraline [Zoloft] 100 mg PO HS 30 Days #30 tab hydrOXYzine pamoate [Vistaril] 25 mg PO BID PRN 30 Days #60 cap PRN Reason: Anxiety Continue Nystatin 100,000Unit/gm Cream [Mycostatin Cream] 1 applic TOPICAL BID 30 Days #1 each valACYclovir HCL [Valtrex] 1,000 mg PO BID 5 Days #10 tablet Discontinued traZODone HCL [Desyrel] 50 mg PO HS 14 Days #14 tab Acetaminophen Tab [Tylenol] 650 mg PO Q4HR PRN tab PRN Reason: Mild Pain (Scale 1 To 3) buPROPion [Wellbutrin] 100 mg PO BID 14 Days #28 tab Sertraline [Zoloft] 100 mg PO DAILY 14 Days #14 tab Ibuprofen [Motrin] 600 mg PO Q6HR PRN tab PRN Reason: Moderate Pain (Scale 4 To 6) Sertraline HCl [Zoloft] 50 mg PO DAILY 14 Days #14 tablet Discharge Medication List Nystatin 100,000Unit/gm Cream [Mycostatin Cream] 1 applic TOPICAL BID 30 Days #1 each 04/07/23 [Rx] valACYclovir HCL [Valtrex] 1,000 mg PO BID 5 Days #10 tablet 04/07/23 [Rx] ARIPiprazole [Abilify] 7.5 mg PO HS 30 Days #15 tablet 11/14/23 [Rx] Sertraline [Zoloft] 100 mg PO HS 30 Days #30 tab 11/14/23 [Rx] hydrOXYzine pamoate [Vistaril] 25 mg PO BID PRN 30 Days #60 cap 11/14/23 [Rx] traZODone HCL [Desyrel] 50 mg PO HS PRN 30 Days #30 tab 11/14/23 [Rx] Follow up Appointment(s)/Referral(s): [facility] [Outside] - 11/21/23 12:30 pm (11-21-23 12:30 with Javi in [place] office 12-04-23 11:[address] Sai Murillo office ) Discharge Disposition: HOME SELF-CARE
[2023-11-14] MEDS ORDERED: SERTRALINE 100 MG TAB PO SCH (21:00)
--- NOTE | 2023-12-15 08:31 | PN ---
PROGRESS NOTE SUBJECTIVE: The patient was seen. Chart was reviewed and case discussed with nursing staff. The patient reports that the new medication changes made and somewhat sleepy. She had a fight with her mother where she became aggressive, but then mother was appropriate and that it was her fault. The patient states that she has started to make progress and does not feels suicidal or homicidal. She denies having any auditory or visual hallucinations. She states she is looking forward to going home. She denies any thoughts of wanting to hurting herself or others. MENTAL STATUS EXAMINATION: Reveals a somewhat short-statured, somewhat overweight female, currently appears in no acute physical distress. The patient is alert and oriented to time, place, and person. Speech is clear. Coherent, relevant thinking. The patient's judgement and insight appears to be fair. The patient denies any suicidal or homicidal ideations. DIAGNOSES: 1. Schizoaffective disorder by history. 2. Adjustive disorder with mixed emotional features. 3. disorder. PLAN: The patient has started to make progress. The patient is learning better coping skills, does compliant with medications. improved. Tentative discharge in middle of next week. MMODL / IJN: [id number] /
--- NOTE | 2023-12-23 11:03 | PN ---
PROGRESS NOTE SUBJECTIVE: The patient was seen and chart was reviewed. Case discussed with nursing staff. The patient reports that the new medication has made her somewhat sleepy, but otherwise she is doing well. She states that she had interpersonal conflicts with her mother, where she became somewhat agitated and aggressive towards her, but that the mother was fine with her and that she did not react to her behavior. She said that she is not intentionally harming herself or others and stated that she has learned from her mistake. The patient states that she plans to follow up in outpatient counseling. The patient denies any intention of harming herself or others. Overall, she states that she feels that she is making progress. MENTAL STATUS EXAMINATION: Reveals a somewhat short statured and obese female who currently appears in acute physical distress. The patient is alert and oriented to time, place, and person. no agitation, aggression are noted at this time. Her affect this time appears to be flat. The patient denied or suicidal or homicidal ideations or plans. PLAN: We will continue current meds as prescribed. Continue supportive care. No side effects of her current medications noted except for some slight sedition and may need to decreasing the medications if continues. DIAGNOSTIC IMPRESSION: 1. Schizophrenia, chronic and differential type. 2. Rule out intermittent explosive disorder. MMODL / IJN: [id number] /
== END 2023-11-14 15:03 | disposition home or self-care (01) | DRG 754 ==
LOC: 3MHU 00:40 → UNDOADMIN 12:40 → 3MHU 12:40 → UNDODISIN 11-14 15:03
PROVIDERS: ADMIT Psychiatry & Neurology Psychiatry; ATTEND Psychiatry & Neurology Psychiatry
DX: F32.9 Major depressive disorder, single episode, unspecified (principal); G47.00 Insomnia, unspecified; F17.200 Nicotine dependence, unspecified, uncomplicated; F60.3 Borderline personality disorder; F41.9 Anxiety disorder, unspecified; R45.851 Suicidal ideations; Z63.0 Problems in relationship with spouse or partner; Z11.52 Encounter for screening for COVID-19
CPT/HCPCS: 81025; 83036; 99285

== ENCOUNTER 2023-12-13 21:46 | Emergency (ER) | payer OTHER ==
--- NOTE | 2023-12-13 22:55 | ED ---
Overdose HPI - General Source: patient, RN notes reviewed Mode of arrival: EMS Limitations: no limitations - History of Present Illness MD Complaint: intentional overdose <Rosario Watts - Last Filed: 12/14/23 02:40> <Freddy Ford - Last Filed: 12/14/23 05:45> - General Chief Complaint: Overdose Stated Complaint: SI Time Seen by Provider: 12/13/23 21:48 - History of Present Illness Initial Comments: This is a 23 year old female who presents to the emergency department for an overdose. States that she took a handful of her psychiatric medication, which includes Abilify, Zoloft, and hydralazine, in an overdose attempt. She called the suicide hotline, who subsequently called EMS to bring her to the emergency department. She had been taking her medication appropriately before the overdose. She does have a history of prior suicide attempts, but not involving medication. States that she currently feels nauseous but otherwise denies any complaints. (Rosario Watts) - Related Data Previous Rx's Medication Instructions Recorded Nystatin 100,000Unit/gm Cream 1 applic TOPICAL BID 30 Days #1 04/07/23 [Mycostatin Cream] each valACYclovir HCL [Valtrex] 1,000 mg PO BID 5 Days #10 tablet 04/07/23 ARIPiprazole [Abilify] 7.5 mg PO HS 30 Days #15 tablet 11/14/23 Sertraline [Zoloft] 100 mg PO HS 30 Days #30 tab 11/14/23 hydrOXYzine pamoate [Vistaril] 25 mg PO BID PRN 30 Days #60 cap 11/14/23 traZODone HCL [Desyrel] 50 mg PO HS PRN 30 Days #30 tab 11/14/23 Allergies Allergy/AdvReac Type Severity Reaction Status Date / Time No Known Allergies Allergy Verified 12/13/23 22:05 Review of Systems ROS Other: All systems not noted in ROS Statement are negative. <Rosario Watts - Last Filed: 12/14/23 02:40> ROS Other: All systems not noted in ROS Statement are negative. <Freddy Ford - Last Filed: 12/14/23 05:45> ROS Statement: Those systems with pertinent positive or pertinent negative responses have been documented in the HPI. Past Medical History Past Medical History: Hypertension, Musculoskeletal Disorder Additional Past Medical History / Comment(s): Autism History of Any Multi-Drug Resistant Organisms: None Reported Past Surgical History: Tonsillectomy Past Anesthesia/Blood Transfusion Reactions: No Reported Reaction Past Psychological History: ADD/ADHD, Anxiety, Depression Smoking Status: Never smoker Past Alcohol Use History: None Reported Past Drug Use History: None Reported <Rosario Watts - Last Filed: 12/14/23 02:40> General Exam Limitations: no limitations General appearance: alert, in no apparent distress Head exam: Present: atraumatic, normocephalic, normal inspection Respiratory exam: Present: normal lung sounds bilaterally. Absent: respiratory distress, wheezes, rales, rhonchi, stridor Cardiovascular Exam: Present: regular rate, normal rhythm, normal heart sounds. Absent: systolic murmur, diastolic murmur, rubs, gallop, clicks GI/Abdominal exam: Present: soft, normal bowel sounds. Absent: distended, tenderness, guarding, rebound, rigid Neurological exam: Present: alert, oriented X3, CN II-XII intact Psychiatric exam: Present: normal affect, normal mood Skin exam: Present: warm, dry, intact, normal color. Absent: rash <Rosario Watts - Last Filed: 12/14/23 02:40> Course Vital Signs 12/13/23 12/14/23 12/14/23 21:52 00:25 04:15 Temperature 98.1 F Pulse Rate 91 90 75 Respiratory 17 16 16 Rate Blood Pressure 135/87 120/49 99/56 O2 Sat by Pulse 99 96 Oximetry Medical Decision Making - Lab Data Result diagrams: 12/13/23 22:58 12/13/23 22:58 <Rosario Watts - Last Filed: 12/14/23 02:40> - Lab Data Result diagrams: 12/13/23 22:58 12/13/23 22:58 <Freddy Ford - Last Filed: 12/14/23 05:45> - Medical Decision Making This is a 23 year old female who presents to the emergency department for an overdose and psychiatric evaluation. Was pt. sent in by a medical professional or institution? @ -No Did you speak to anyone other than the patient for history? @ -No Did you review nursing and triage notes? @ -Yes, and I agree, it is accurate with regards to the patient's symptoms. Were old charts reviewed? @ -No Differential Diagnosis? @ -Differential Mental Health: Depression, anxiety, bipolar, psychosis, schizophrenia, borderline personality, situational depression, adjustment disorder, behavioral disorder, brain tumor, malingering, substance abuse, encephalopathy, medication reaction, dementia, hypothyroidism, degenerative neurologic disorder, lupus.... This is not meant to be all-inclusive list EKG interpreted by me (3pts min.)? @ -EKG interpreted by me demonstrating the following: Sinus rhythm. Ventricular rate 77 bpm, RI interval 107 ms, QRS duration 99 ms, QTc 407 ms. X-rays interpreted by me (1pt min.)? @ -Not obtained CT interpreted by me (1pt min.)? @ -Not obtained U/S interpreted by me (1pt. min.)? @ -Not obtained What testing was considered but not performed? (CT, X-rays, U/S, labs)? Why? @ -None What meds were considered but not given? Why? @ -None Did you discuss the management of the patient with other professionals? @ -No Did you reconcile home meds? @ -No Was smoking cessation discussed for >3mins.? @ -No Was critical care preformed (if so, how long)? @ -No Were there social determinants of health that impacted care today? How? (Homelessness, low income, unemployed, alcoholism, drug addiction, transporta tion, low edu. Level, literacy, decrease access to med. care, nursing home, rehab)? @ -No Was there de-escalation of care discussed even if they declined? (Discuss DNR or withdrawal of care, Hospice)? @ -No What co-morbidities impacted this encounter? (DM, HTN, Smoking, COPD, CAD, Cancer, CVA, Hep., AIDS, mental health diagnosis, sleep apnea, morbid obesity)? @ -Autism, major depressive disorder, borderline personality disorder Was patient admitted / discharged? @ -Patient admitted to attempting to overdose by taking large amounts of her Abilify, Zoloft, and hydroxyzine. Poison control was contacted and advised lab work and an EKG which was obtained. They also advised that patient needed to be monitored for 8 hours before being medically cleared. Patient will be medically cleared for EPS evaluation at 0500. Case signed out to ED attending Dr. Ford at shift completion pending EPS evaluation. (Rosario Watts) - Lab Data Lab Results 12/13/23 12/13/23 12/13/23 Range/Units 22:58 22:58 22:58 WBC 6.5 (3.8-10.6) k/uL RBC 4.31 (3.80-5.40) m/uL Hgb 12.2 (11.4-16.0) gm/dL Hct 37.4 (34.0-46.0) % MCV 86.7 (80.0-100.0) fL MCH 28.3 (25.0-35.0) pg MCHC 32.7 (31.0-37.0) g/dL RDW 13.4 (11.5-15.5) % Plt Count 261 (150-450) k/uL MPV 9.2 Neutrophils % 58 % Lymphocytes % 29 % Monocytes % 8 % Eosinophils % 2 % Basophils % 0 % Neutrophils # 3.8 (1.3-7.7) k/uL Lymphocytes # 1.9 (1.0-4.8) k/uL Monocytes # 0.5 (0-1.0) k/uL Eosinophils # 0.1 (0-0.7) k/uL Basophils # 0.0 (0-0.2) k/uL Sodium (137-145) mmol/L Potassium (3.5-5.1) mmol/L Chloride (98-107) mmol/L Carbon Dioxide (22-30) mmol/L Anion Gap mmol/L BUN (7-17) mg/dL Creatinine (0.52-1.04) mg/dL Est GFR (CKD-EPI)AfAm (>60 ml/min/1.73 sqM) Est GFR (CKD-EPI)NonAf (>60 ml/min/1.73 sqM) Glucose (74-99) mg/dL Calcium (8.4-10.2) mg/dL Total Bilirubin (0.2-1.3) mg/dL AST (14-36) U/L ALT (4-34) U/L Alkaline Phosphatase (38-126) U/L Total Protein (6.3-8.2) g/dL Albumin (3.5-5.0) g/dL Urine Color Yellow Urine Appearance Cloudy H (Clear) Urine pH 5.5 (5.0-8.0) Ur Specific [place] 1.028 (1.001-1.035) Urine Protein Trace H (Negative) Urine Glucose (UA) Negative (Negative) Urine Ketones Negative (Negative) Urine Blood Moderate H (Negative) Urine Nitrite Negative (Negative) Urine Bilirubin Negative (Negative) Urine Urobilinogen <2.0 (<2.0) mg/dL Ur Leukocyte Esterase Small H (Negative) Urine RBC 1 (0-5) /hpf Urine WBC 2 (0-5) /hpf Ur Squamous Epith Cells 10 H (0-4) /hpf Urine Bacteria Rare H (None) /hpf Urine Mucus Moderate H (None) /hpf Urine HCG, Qual Not Detected (Not Detectd) Salicylates mg/dL Urine Opiates Screen Not Detected (NotDetected) Ur Oxycodone Screen Not Detected (NotDetected) Urine Methadone Screen Not Detected (NotDetected) Acetaminophen ug/mL Ur Barbiturates Screen Not Detected (NotDetected) U Tricyclic Antidepress Not Detected (NotDetected) Ur Phencyclidine Scrn Not Detected (NotDetected) Ur Amphetamines Screen Not Detected (NotDetected) U Methamphetamines Scrn Not Detected (NotDetected) U Benzodiazepines Scrn Not Detected (NotDetected) Urine Cocaine Screen Not Detected (NotDetected) U Marijuana (THC) Screen Not Detected (NotDetected) Serum Alcohol mg/dL 12/13/23 Range/Units 22:58 WBC (3.8-10.6) k/uL RBC (3.80-5.40) m/uL Hgb (11.4-16.0) gm/dL Hct (34.0-46.0) % MCV (80.0-100.0) fL MCH (25.0-35.0) pg MCHC (31.0-37.0) g/dL RDW (11.5-15.5) % Plt Count (150-450) k/uL MPV Neutrophils % % Lymphocytes % % Monocytes % % Eosinophils % % Basophils % % Neutrophils # (1.3-7.7) k/uL Lymphocytes # (1.0-4.8) k/uL Monocytes # (0-1.0) k/uL Eosinophils # (0-0.7) k/uL Basophils # (0-0.2) k/uL Sodium 138 (137-145) mmol/L Potassium 3.9 (3.5-5.1) mmol/L Chloride 110 H (98-107) mmol/L Carbon Dioxide 23 (22-30) mmol/L Anion Gap 5 mmol/L BUN 11 (7-17) mg/dL Creatinine 0.74 (0.52-1.04) mg/dL Est GFR (CKD-EPI)AfAm >90 (>60 ml/min/1.73 sqM) Est GFR (CKD-EPI)NonAf >90 (>60 ml/min/1.73 sqM) Glucose 85 (74-99) mg/dL Calcium 9.3 (8.4-10.2) mg/dL Total Bilirubin 0.5 (0.2-1.3) mg/dL AST 28 (14-36) U/L ALT 27 (4-34) U/L Alkaline Phosphatase 65 (38-126) U/L Total Protein 6.3 (6.3-8.2) g/dL Albumin 3.9 (3.5-5.0) g/dL Urine Color Urine Appearance (Clear) Urine pH (5.0-8.0) Ur Specific [place] (1.001-1.035) Urine Protein (Negative) Urine Glucose (UA) (Negative) Urine Ketones (Negative) Urine Blood (Negative) Urine Nitrite (Negative) Urine Bilirubin (Negative) Urine Urobilinogen (<2.0) mg/dL Ur Leukocyte Esterase (Negative) Urine RBC (0-5) /hpf Urine WBC (0-5) /hpf Ur Squamous Epith Cells (0-4) /hpf Urine Bacteria (None) /hpf Urine Mucus (None) /hpf Urine HCG, Qual (Not Detectd) Salicylates <1.0 mg/dL Urine Opiates Screen (NotDetected) Ur Oxycodone Screen (NotDetected) Urine Methadone Screen (NotDetected) Acetaminophen <10.0 ug/mL Ur Barbiturates Screen (NotDetected) U Tricyclic Antidepress (NotDetected) Ur Phencyclidine Scrn (NotDetected) Ur Amphetamines Screen (NotDetected) U Methamphetamines Scrn (NotDetected) U Benzodiazepines Scrn (NotDetected) Urine Cocaine Screen (NotDetected) U Marijuana (THC) Screen (NotDetected) Serum Alcohol <10 mg/dL Disposition <Rosario Watts - Last Filed: 12/14/23 02:40> Is patient prescribed a controlled substance at d/c from ED?: No Time of Disposition: 05:45 <Freddy Ford - Last Filed: 12/14/23 05:45> Clinical Impression: Suicidal ideation, Depression Disposition: ADMITTED IP TO THIS HOSP Condition: Stable Referrals: Nolvia Peters MD [Primary Care Provider] - 1-2 days
[2023-12-13] MEDS: SODIUM CHLORIDE 0.9% 1,000 ML IV STA (23:04)
[2023-12-13] MEDS: ONDANSETRON 4 MG/2 ML VIAL IVP STA (23:05)
[2023-12-13 23:18] LABS: Basophils % (A) 0 %; Eosinophils # (A) 0.1 k/uL (0-0.7); Eosinophils % (A) 2 %; HCT 37.4 % (34.0-46.0); HGB 12.2 gm/dL (11.4-16.0); Lymphocytes # (A) 1.9 k/uL (1.0-4.8); Lymphocytes % (A) 29 %; MCH 28.3 pg (25.0-35.0); MCHC 32.7 g/dL (31.0-37.0); MCV 86.7 fL (80.0-100.0); Mean Platelet Volume 9.2; Monocytes # (A) 0.5 k/uL (0-1.0); Monocytes % (A) 8 %; Neutrophils # (A) 3.8 k/uL (1.3-7.7); Neutrophils % (A) 58 %; Platelet Count 261 k/uL (150-450); RBC 4.31 m/uL (3.80-5.40); RDW 13.4 % (11.5-15.5); WBC 6.5 k/uL (3.8-10.6)
[2023-12-13 23:37] LABS: Appearance,Urine Cloudy (Clear); Bacteria,Urine Rare /hpf; Bilirubin,Urine Negative (Negative); Blood,Urine Moderate (Negative); Color,Urine Yellow; Glucose,Urine (UA) Negative (Negative); Ketones,Urine Negative (Negative); Leukocyte Esterase,Urine Small (Negative); Mucus,Urine Moderate /hpf; Nitrite,Urine Negative (Negative); PH, Urine 5.5 (5.0-8.0); Protein,Urine Trace (Negative); RBC,Urine 1 /hpf (0-5); Specific Gravity,Urine 1.028 (1.001-1.035); Squamous Epithelial Cell,Urine 10 /hpf (0-4); Urobilinogen,Urine <2.0 mg/dL (<2.0); WBC,Urine 2 /hpf (0-5)
[2023-12-13 23:44] LABS: Amphetamine Screen,Urine Not Detected (NotDetected); Barbiturate Screen,Urine Not Detected (NotDetected); Benzodiazepines Screen,Urine Not Detected (NotDetected); Cocaine Screen,Urine Not Detected (NotDetected); Methadone Screen, Urine Not Detected (NotDetected); Opiate Screen,Urine Not Detected (NotDetected); Oxycodone Screen, Urine Not Detected (NotDetected); Phencyclidine Screen,Urine Not Detected (NotDetected); Tricyclic Antidepressant,Urine Not Detected (NotDetected); Urn Cannabinoid Scrn Not Detected (NotDetected)
[2023-12-14] LABS: ALT 27 U/L (4-34); AST 28 U/L (14-36); Acetaminophen <10.0 ug/mL; African American GFR (CKD) >90 (>60 ml/min/1.73 sqM); Albumin 3.9 g/dL (3.5-5.0); Alcohol <10 mg/dL; Alkaline Phosphatase 65 U/L (38-126); Anion Gap 5 mmol/L; Blood Urea Nitrogen 11 mg/dL (7-17); Calcium 9.3 mg/dL (8.4-10.2); Carbon Dioxide 23 mmol/L (22-30); Chloride 110 mmol/L (98-107); Glucose 85 mg/dL (74-99); Non-African American GFR(CKD) >90 (>60 ml/min/1.73 sqM); Potassium 3.9 mmol/L (3.5-5.1); Salicylate <1.0 mg/dL; Sodium 138 mmol/L (137-145); Total Bilirubin 0.5 mg/dL (0.2-1.3); Total Protein 6.3 g/dL (6.3-8.2)
[2023-12-14 12:16] VITALS: BP 138/56; PULSE 83; RESP 18; TEMP 98.4
== END 2023-12-14 13:05 | disposition other institution (70) ==
LOC: EC 21:46
CPT/HCPCS: 36415; 80053; 80143; 80179; 80306; 80320; 81001; 81025; 82075; 85025; 87635; 93005; 96361; 96374; 99285